=== PATIENT | male | born 1955 | race Two or more races ===

== ENCOUNTER 2023-08-08 17:19 | Emergency (ER) | payer OTHER ==
[2023-08-08 18:02] VITALS: RESP 16; TEMP 98.2; BMI 28.1
[2023-08-08] MEDS ORDERED: ACETAMINOPHEN INJECTION 100 ML IVPB ONE (18:14)
[2023-08-08] MEDS ORDERED: DIPHTH,PERTUSS(ACELL),TET 0.5 ML DISP.SYRIN IM ONE (18:14)
[2023-08-08] MEDS: DIPHTH,PERTUSS(ACELL),TET 0.5 ML DISP.SYRIN IM ONE (18:20)
[2023-08-08] MEDS: ACETAMINOPHEN 1000 MG/100 ML BAG IVPB ONE (18:20)
[2023-08-08] MEDS: SODIUM CHLORIDE 0.9% 500 ML INFUS.BAG IV ONE (18:21)
[2023-08-08 18:45] VITALS: BP 115/57; PULSE 63
[2023-08-08 18:46] LABS: BASO % 1.2 % (0-2.0); HEMATOCRIT 36.7 % (35.4-49); HEMOGLOBIN 12.4 GM/dL (11.7-16.9); LYMPH % 25.4 % (8-40); MCH 30.5 pg (25.7-33.7); MCHC 33.8 g/dl (32.0-35.9); MEAN CELL VOLUME 90.2 fl (80-96); MEAN PLT VOLUME 8.5 fl (7.5-11.1); MONO % 7.2 % (3.8-10.2); NEUT % 62.2 % (42.8-82.8); PLATELET COUNT 201 10^3/uL (134-434); RBC 4.07 M/mm3 (4.00-5.60)
[2023-08-08 18:53] LABS: INR 0.96 (0.83-1.09); PROTHROMBIN TIME (PATIENT) 10.9 SEC (9.7-13.0)
[2023-08-08 18:55] LABS: ACTIVATED PTT 31.3 SECONDS (25.2-36.5)
[2023-08-08 19:11] LABS: POTASSIUM 4.3 mmol/L (3.5-5.1)
[2023-08-08 19:13] LABS: CALCIUM 9.6 mg/dL (8.5-10.1)
[2023-08-08 19:14] LABS: BLOOD UREA NITROGEN 17.2 mg/dL (7-18); MAGNESIUM 1.9 mg/dL (1.8-2.4)
[2023-08-08 19:17] LABS: CREATININE 1.3 mg/dL (0.55-1.3)
[2023-08-08 19:19] LABS: BILIRUBIN,TOTAL 0.5 mg/dL (0.2-1); TOT PROT 7.1 g/dl (6.4-8.2)
[2023-08-08] MEDS ORDERED: LIDOCAINE 1%/EPI 1:100000 (20 ML MULTI DOSE VIAL) ONE (19:35)
[2023-08-08] MEDS: LIDOCAINE 1%/EPI 1:100000 (50 ML MULTI DOSE VIAL) INF ONE (19:54)
== END 2023-08-08 21:46 | disposition home or self-care (01) ==
LOC: JER 17:19
PROC: 3E033NZ Introduction of Analgesics, Hypnotics, Sedatives into Peripheral Vein, Percutaneous Approach (ICD-10-PCS; principal; 2023-08-08)
PROC: 3E0234Z Introduction of Serum, Toxoid and Vaccine into Muscle, Percutaneous Approach (ICD-10-PCS; 2023-08-08)
DX: S01.01XA Laceration without foreign body of scalp, initial encounter (principal); R55 Syncope and collapse; R42 Dizziness and giddiness; W18.39XA Other fall on same level, initial encounter; Y92.002 Bathroom of unspecified non-institutional (private) residence as the place of occurrence of the external cause; Z20.822 Contact with and (suspected) exposure to COVID-19; Z23 Encounter for immunization
CPT/HCPCS: 0241U-QW; 36415; 70450-TC; 71045-TC-FY; 72125-TC; 80053; 82550; 82962; 83735; 84484; 85025; 85610; 85730; 86850; 86900; 86901; 90715; 93005; 93010; 99285-25; J0131